=== PATIENT | female | born 1990 | race Two or more races ===

== ENCOUNTER → 2021-10-07 | Emergency (ER) | payer OTHER ==
[~2021-10-07] VITALS: Ht 162.6 cm; Wt 71.7 kg
[~2021-10-07] MED LIST: TRI-LO-ESTARYL1 EACH
== END | disposition home or self-care (01) ==
LOC: ER 11:31
DX: U07.1 COVID-19 (principal)

== ENCOUNTER 2021-10-10 09:00 | Outpatient (CLI) | payer OTHER | END 2021-10-10 09:40 | disposition home or self-care (01) | LOC: ASH CLINIC 09:00 | PROVIDERS: ATTEND Specialist | DX: U07.1 COVID-19 (principal) ==

== ENCOUNTER 2024-07-17 11:51 | Outpatient (CLI) | payer OTHER ==
[~2024-07-17 11:51] MED LIST changes: +ZYNCOF 20-400120 ML PO
== END 2024-07-17 12:35 | disposition home or self-care (01) ==
LOC: NST 11:51
PROVIDERS: ATTEND Obstetrics & Gynecology Maternal & Fetal Medicine
DX: Z34.83 Encounter for supervision of other normal pregnancy, third trimester (principal)

== ENCOUNTER 2024-07-23 14:19 | Inpatient (IN) | payer OTHER ==
[~2024-07-23] VITALS: Ht 162.6 cm; Wt 88.9 kg
[2024-07-25] MEDS ORDERED: PRENATAL + DHA1 EAC1 PO (14:25)
[2024-07-25 23:18] VITALS: BP 118/79
[2024-07-25] MEDS ORDERED: RINGERS SOLUTION,LACTATED 1,000 ML IV SCH (23:45)
[2024-07-25] MEDS ORDERED: MORPHINE SULFATE 4 MG/ML CARTRIDGE IV PRN (23:45)
[2024-07-25] MEDS ORDERED: ONDANSETRON HCL 2 MG/ML VIAL IV PRN (23:45)
[2024-07-26] VITALS (9 sets, daily range): BP systolic 111–128; BP diastolic 56–77
[2024-07-26 00:33] LABS: BASO % 0.2 % (0.1-1.2); EOS # 0.25 (0.04-0.54); HEMATOCRIT 37.6 % (34.1-44.9); LYMPH # 2.04 (1.18-3.74); LYMPH % 16.5 % (19.3-53.1); MEAN CORPUSCULAR HEMOGLOBIN 30.6 pg (25.6-32.2); MONO # 0.79 (0.24-0.82); MONO % 6.4 % (4.7-12.5); NEUT # 9.25 (1.56-6.13); NEUT % 74.6 % (34.0-71.1); PLATELET COUNT 202 K/uL (163-369); RED BLOOD COUNT 4.25 M/uL (3.93-5.22); RED CELL DISTRIBUTION WIDTH 14.1 % (11.6-14.4)
[2024-07-26 01:08] LABS: INR 0.96; PARTIAL THROMBOPLASTIN TIME 27.4 SECONDS (22.0-34.0); PROTHROMBIN TIME 10.5 SECONDS (9.0-11.5)
[2024-07-26 01:24] LABS: ALBUMIN 2.7 gm/dL (3.4-5.0); BILIRUBIN TOTAL 0.31 mg/dL (0.3-1.2); CALCIUM 9.5 mg/dL (8.5-10.1); CREATININE SERUM 0.57 mg/dL (0.55-1.02); GFR 123.71; GLOBULINA 4.1 G/DL (2.4-3.5); POTASSIUM 4.73 mEq/L (3.5-5.1); TOTAL PROTEIN 6.8 gm/dL (6.4-8.2)
[2024-07-26] MEDS ORDERED: OXYTOCIN 500 ML IV SCH (04:15)
[2024-07-26] MEDS ORDERED: PNV,CALCIUM 72/IRON/FOLIC ACID 1 TAB TABLET PO SCH ×2 (05:06→09:00)
[2024-07-26] MEDS ORDERED: OXYTOCIN 1,000 ML IV ONE (05:15)
[2024-07-26] MEDS ORDERED: CHLORHEXIDINE GLUCONATE 120 ML BOTTLE TOP SCH (05:15)
[2024-07-26] MEDS ORDERED: IBUprofen 400 MG TABLET PO PRN (05:15)
[2024-07-26] MEDS ORDERED: ERYTHROMYCIN BASE OPHT 1GM EACH TUBE OP ONE (05:30)
[2024-07-26] MEDS ORDERED: LIDOCAINE HCL 1% 10ML VIAL IJ ONE (05:30)
[2024-07-26] MEDS ORDERED: DOCUSATE SODIUM 100MG CAP PO SCH (09:00)
[2024-07-27 01:45] VITALS: BP 121/79
[2024-07-27 08:08] VITALS: BP 95/59
[2024-07-27 15:57] VITALS: BP 123/79
[2024-07-28 01:17] VITALS: BP 113/77
[2024-07-28 08:25] VITALS: BP 112/76; O2SAT 98
== END 2024-07-28 11:56 | disposition home or self-care (01) | DRG 807 ==
LOC: LDR 14:19 → OB/GYN 07-26 08:28
PROVIDERS: Obstetrics & Gynecology Gynecology; ADMIT Obstetrics & Gynecology; ATTEND Obstetrics & Gynecology
PROC: 4A1HXCZ Monitoring of Products of Conception, Cardiac Rate, External Approach (ICD-10-PCS; 2024-07-25)
PROC: 10E0XZZ Delivery of Products of Conception, External Approach (ICD-10-PCS; principal; 2024-07-26)
PROC: 0KQM0ZZ Repair Perineum Muscle, Open Approach (ICD-10-PCS; 2024-07-26)
DX: O70.1 Second degree perineal laceration during delivery (principal); Z37.0 Single live birth; Z3A.40 40 weeks gestation of pregnancy

== ENCOUNTER 2024-07-24 08:55 | Outpatient (CLI) | payer OTHER ==
[2024-07-25] MEDS ORDERED: PRENATAL + DHA1 EAC1 PO (14:25)
== END 2024-07-24 09:39 | disposition home or self-care (01) ==
LOC: NST 08:55
PROVIDERS: ATTEND Obstetrics & Gynecology Maternal & Fetal Medicine
DX: Z34.83 Encounter for supervision of other normal pregnancy, third trimester (principal)

== ENCOUNTER 2024-07-25 13:40 | Outpatient (CLI) | payer OTHER ==
[2024-07-25 11:30] VITALS: BP 124/78
[2024-07-25 13:30] VITALS: BP 124/78
[2024-07-25] MEDS ORDERED: RINGERS SOLUTION,LACTATED 1,000 ML IV SCH (14:00)
[2024-07-25] MEDS ORDERED: PRENATAL + DHA1 EAC1 PO (14:25)
[2024-07-25 15:10] VITALS: BP 123/76
== END 2024-07-25 16:41 | disposition home or self-care (01) ==
LOC: OBS/DEL 13:40
PROVIDERS: ATTEND Obstetrics & Gynecology Gynecology
DX: O26.893 Other specified pregnancy related conditions, third trimester (principal); Z3A.40 40 weeks gestation of pregnancy